=== PATIENT | male | born 1980 | race Caucasian/White ===

== ENCOUNTER 2019-11-11 20:08 | Emergency (ER) | payer OTHER ==
[~2019-11-11] VITALS: Ht 185.4 cm; Wt 98.4 kg
[~2019-11-11 20:08] MED LIST: CEPH500 PO; CETI10 PO; DIPH25 PO; FAMO20 PO; Flomax0.4 MG PO; HYDACE10B PO; ONDA4ODT MM; OXYACE10 PO; OXYACE5T PO; PRED20 PO; Percocet 5-3251 EACH PO; SULTRIDS PO
[2019-11-11 20:58] LABS: BASOPHILS ABSOLUTE AUTO 0.03 K/mm3 (0.00-0.23); BASOPHILS PERCENT AUTO 0 % (0-2); EOSINOPHILS ABSOLUTE AUTO 0.02 K/mm3 (0.00-0.68); EOSINOPHILS PERCENT AUTO 0 % (0-6); Hematocrit 54.6 % (37.0-53.0); Hemoglobin 17.4 g/dL (13.5-17.5); IMMATURE GRAN ABSOLUTE AUTO 0.02 K/mm3 (0.00-0.10); IMMATURE GRAN PERCENT AUTO 0 % (0-1); LYMPHOCYTES ABSOLUTE AUTO 0.54 K/mm3 (0.84-5.20); LYMPHOCYTES PERCENT AUTO 6 % (21-46); MONOCYTES ABSOLUTE AUTO 0.32 K/mm3 (0.16-1.47); MONOCYTES PERCENT AUTO 4 % (4-13); Mean Corpuscular HGB 28.8 pg (26.0-34.0); Mean Corpuscular HGB Conc 31.9 g/dL (31.5-36.5); Mean Corpuscular Volume 90 fL (80-100); Mean Platelet Volume 8.9 fL (9.1-12.4); NEUTROPHILS ABSOLUTE AUTO 7.58 K/mm3 (1.96-9.15); NEUTROPHILS PERCENT AUTO 89 % (41-73); Platelet Count 242 K/mm3 (150-400); RDW Coefficient Variation 12.6 % (11.7-14.2); RDW Standard Deviation 41.6 fL (35.1-46.3); Red Blood Cell Count 6.05 M/mm3 (4.30-5.90); White Blood Cell Count 8.51 K/mm3 (4.00-11.30)
[2019-11-11 21:18] LABS: Alanine Aminotransfer (ALT/SGP 26 U/L (12-78); Albumin, Blood 4.2 g/dL (3.4-5.0); Alk Phos 54 U/L (50-136); Anion Gap 8 mmol/L (6-16); Aspartate Aminotrans (AST/SGOT 27 U/L (12-37); Bilirubin, Total 1.5 mg/dL (0.1-1.0); Blood Urea Nitrogen 14 mg/dL (8-24); Bun/Creatinine Ratio 12.3 (12.0-20.0); CO2, Blood 24 mmol/L (21-32); Calcium, Blood 8.7 mg/dL (8.5-10.1); Chloride, Blood 108 mmol/L (98-108); Creatinine, Blood 1.14 mg/dL (0.60-1.20); Globulin, Blood 4.2 g/dL (2.2-4.0); Glomerular Filtration Rate >60 (60-); Glucose, Blood 215 mg/dL (70-99); Potassium, Blood 4.4 mmol/L (3.5-5.5); Sodium, Blood 140 mmol/L (136-145); Total Protein, Blood 8.4 g/dL (6.4-8.2)
[2019-11-11] MEDS ORDERED: NARCAN4 MG (22:16)
== END 2019-11-11 22:51 | disposition home or self-care (01) ==
LOC: ER 20:08
PROVIDERS: Emergency Medicine
DX: T40.1X1A Poisoning by heroin, accidental (unintentional), initial encounter (principal); F17.200 Nicotine dependence, unspecified, uncomplicated
CPT/HCPCS: 36415; 71046; 80053; 85025; 93005; 93010; 99284-25

== ENCOUNTER 2020-12-27 01:22 | Emergency (ER) | payer OTHER ==
[~2020-12-27] VITALS: Ht 185.4 cm; Wt 88.5 kg
[~2020-12-27 01:22] MED LIST changes: +NARCAN4 MG
== END 2020-12-27 03:21 | disposition left against medical advice (07) ==
LOC: ER 01:22
DX: Z53.21 Procedure and treatment not carried out due to patient leaving prior to being seen by health care provider (principal)

== ENCOUNTER 2020-12-29 15:08 | Emergency (ER) | payer OTHER ==
[~2020-12-29] VITALS: Ht 185.4 cm; Wt 90.7 kg
[2020-12-29] MEDS ORDERED: BACTRIM DS TAB1 EAC1 PO (16:47)
[2020-12-29] MEDS ORDERED: CEPH500 PO (16:47)
== END 2020-12-29 16:58 | disposition home or self-care (01) ==
LOC: ER 15:08
DX: L02.416 Cutaneous abscess of left lower limb (principal); L03.116 Cellulitis of left lower limb; F17.200 Nicotine dependence, unspecified, uncomplicated
CPT/HCPCS: 10060; 96372-59; 99283-25; A9270; J1885

== ENCOUNTER 2021-09-03 17:01 | Emergency (ER) | payer OTHER ==
[~2021-09-03] VITALS: Ht 188 cm; Wt 90.7 kg
[~2021-09-03 17:01] MED LIST changes: +BACTRIM DS TAB1 EAC1 PO
== END 2021-09-03 17:34 | disposition home or self-care (01) ==
LOC: ER 17:01
DX: T40.1X1A Poisoning by heroin, accidental (unintentional), initial encounter (principal); F17.210 Nicotine dependence, cigarettes, uncomplicated
CPT/HCPCS: 99284

== ENCOUNTER 2021-10-29 19:47 | Emergency (ER) | payer OTHER | END 2021-10-29 19:59 | disposition left against medical advice (07) | LOC: ER 19:47 | DX: Z53.21 Procedure and treatment not carried out due to patient leaving prior to being seen by health care provider (principal) ==

== ENCOUNTER 2021-11-29 18:17 | Emergency (ER) | payer OTHER ==
[~2021-11-29] VITALS: Ht 182.9 cm; Wt 90.7 kg
[2021-11-29] MEDS ORDERED: NARCAN4 M1 (19:15)
== END 2021-11-29 19:33 | disposition home or self-care (01) ==
LOC: ER 18:17
DX: T40.1X1A Poisoning by heroin, accidental (unintentional), initial encounter (principal); F17.210 Nicotine dependence, cigarettes, uncomplicated
CPT/HCPCS: 99284

== ENCOUNTER 2022-01-20 21:03 | Emergency (ER) | payer OTHER ==
[~2022-01-20] VITALS: Ht 182.9 cm; Wt 86.2 kg
[~2022-01-20 21:03] MED LIST changes: +NARCAN4 M1
== END 2022-01-22 21:14 | disposition left against medical advice (07) ==
LOC: ER 21:03
DX: Z53.21 Procedure and treatment not carried out due to patient leaving prior to being seen by health care provider (principal)
CPT/HCPCS: 93005; 93010

== ENCOUNTER → 2022-06-27 | Outpatient (CLI) | payer OTHER | END | disposition home or self-care (01) | LOC: LAB SHORT 12:50 → LAB 12:50 | DX: R31.9 Hematuria, unspecified (principal) | CPT/HCPCS: 87077; 87086; 87186 ==

== ENCOUNTER 2023-02-17 11:14 | Inpatient (IN) | payer OTHER ==
[~2023-02-17] VITALS: Ht 188 cm; Wt 92.9 kg
[2023-02-17 12:07] LABS: BASOPHILS ABSOLUTE AUTO 0.05 K/mm3 (0.00-0.23); BASOPHILS PERCENT AUTO 0 % (0-2); EOSINOPHILS ABSOLUTE AUTO 0.24 K/mm3 (0.00-0.68); EOSINOPHILS PERCENT AUTO 2 % (0-6); Hematocrit 39.8 % (37.0-53.0); Hemoglobin 13.1 g/dL (13.5-17.5); IMMATURE GRAN ABSOLUTE AUTO 0.03 K/mm3 (0.00-0.10); IMMATURE GRAN PERCENT AUTO 0 % (0-1); LYMPHOCYTES ABSOLUTE AUTO 0.74 K/mm3 (0.84-5.20); LYMPHOCYTES PERCENT AUTO 6 % (21-46); MONOCYTES ABSOLUTE AUTO 0.75 K/mm3 (0.16-1.47); MONOCYTES PERCENT AUTO 6 % (4-13); Mean Corpuscular HGB 28.8 pg (26.0-34.0); Mean Corpuscular HGB Conc 32.9 g/dL (31.5-36.5); Mean Corpuscular Volume 88 fL (80-100); Mean Platelet Volume 8.9 fL (9.1-12.4); NEUTROPHILS ABSOLUTE AUTO 10.17 K/mm3 (1.96-9.15); NEUTROPHILS PERCENT AUTO 85 % (41-73); Platelet Count 299 K/mm3 (150-400); RDW Coefficient Variation 13.1 % (11.7-14.2); RDW Standard Deviation 42.2 fL (35.1-46.3); Red Blood Cell Count 4.55 M/mm3 (4.30-5.90); White Blood Cell Count 11.98 K/mm3 (4.00-11.30)
[2023-02-17 12:18] LABS: Albumin, Blood 3.1 g/dL (3.4-5.0); Albumin/Globulin Ratio 0.7 (0.8-1.8); Bilirubin, Total 0.5 mg/dL (0.1-1.0); Bun/Creatinine Ratio 24.5 (12.0-20.0); Calcium, Blood 8.9 mg/dL (8.5-10.1); Creatinine, Blood 0.78 mg/dL (0.60-1.20); Globulin, Blood 4.5 g/dL (2.2-4.0); Potassium, Blood 4.4 mmol/L (3.5-5.5); Total Protein, Blood 7.6 g/dL (6.4-8.2)
[2023-02-17 15:48] VITALS: BP 153/79
[2023-02-17 20:39] VITALS: BP 119/68
[2023-02-17 20:47] LABS: Source, Urine Clean Catch
[2023-02-17 20:57] LABS: Appearance, Urine Clear (Clear); Bilirubin, Urine Neg (Neg); Blood, Urine Neg (Neg); Color, Urine Yellow (P-Yellow); Glucose Qualitative, Urine Neg (Neg); Ketones, Urine Neg (Neg); Leukocyte Esterase, Urine Neg (Neg); Nitrite, Urine Neg (Neg); Protein, Urine 1+ (Neg); Urobilinogen, Urine NORM (Normal)
[2023-02-17 21:10] LABS: U Amphetamine Screen DETECTED; U Barbituate Screen Not Detected; U Benzodiazapine Screen Not Detected; U Buprenorphine Screen Not Detected; U Cannabinoids Screen DETECTED; U Cocaine Screen Not Detected; U Methadone Screen Not Detected; U Methamphetamine Screen DETECTED; U Opiates Screen Not Detected; U Oxycodone Screen DETECTED; U Phencyclidine Screen Not Detected; U Propoxyphene Screen Not Detected
[2023-02-18] VITALS (13 sets, daily range): BP systolic 100–143; BP diastolic 47–82
--- NOTE | 2023-02-18 02:56 | NUR ---
SHIFT SUMMARY NOC PT A/O X 4. PLEASANT AND COOPERATIVE WITH CARE. AFFECT IS FLAT. PT HAD CT SCAN PERFORMED STILL AWAITING RESULTS. PT HAS IRRIGATION/DEBRIDEMENT SCHEDULED WITH DR DHALIWAL TODAY FOR R HAND CELLULITIS. PT HAD C/O OF PAIN ONCE DURING SHIFT AND WAS MEDICATED PER EMAR. PT REFUSED SCD'S FOR DVT PREVENTION. PT ALSO ON NPO STATUS AWAITING I/D PROCEDURE. PT HAS PG IN RADHA. PT IS CURRENTLY RESTING WITH BED IN LOWEST POSITION, AND CALL LIGHT WITHIN REACH.
[2023-02-18 04:47] LABS: Hematocrit 38.7 % (37.0-53.0); Hemoglobin 12.7 g/dL (13.5-17.5); Mean Corpuscular HGB 28.9 pg (26.0-34.0); Mean Corpuscular HGB Conc 32.8 g/dL (31.5-36.5); Mean Corpuscular Volume 88 fL (80-100); Mean Platelet Volume 8.8 fL (9.1-12.4); Platelet Count 254 K/mm3 (150-400); RDW Coefficient Variation 12.9 % (11.7-14.2); RDW Standard Deviation 41.8 fL (35.1-46.3)
[2023-02-18 05:08] LABS: Bun/Creatinine Ratio 16.6 (12.0-20.0); Calcium, Blood 8.8 mg/dL (8.5-10.1); Creatinine, Blood 0.84 mg/dL (0.60-1.20); Potassium, Blood 3.9 mmol/L (3.5-5.5)
--- NOTE | 2023-02-18 17:04 | NUR ---
PT AAOX4. CALLS APPROPRIATELY. PAIN WELL CONTROLLED WITH PAIN MEDS. NO ACUTE EVENTS THIS SHIFT. PT IS CALM AND COOPERATIVE.
[2023-02-19 01:44] VITALS: BP 117/70
--- NOTE | 2023-02-19 04:53 | NUR ---
SHIFT SUMMARY NOC PT A/O X 4. PLEASANT AND COOPERATIVE WITH CARE. PT HAD NO C/O OF PAIN IN R HAND AFTER I/D PROCEDURE YESTERDAY, NO PAIN RX REQUIRED. PT DRESSING ON R HAND IS C/D/I. PT PG DOES NOT WORK AND A PERIPHERAL IV ACCESS WAS STARTED IN L HAND. PT IS CURRENTLY RESTING WITH BED IN LOWEST POSITION, AND CALL LIGHT WITHIN REACH.
[2023-02-19 05:49] VITALS: BP 113/61
[2023-02-19 07:55] VITALS: BP 111/56
[2023-02-19 15:52] VITALS: BP 112/52
--- NOTE | 2023-02-19 17:47 | NUR ---
SHIFT SUMMARY- PT'S PAIN WELL CONTROLLED THIS SHIFT WITH PAIN MEDS. MADHURI CHANGED PT'S DRESSING TODAY W/RN IN ROOM. NO ACUTE EVENTS THIS SHIFT. PT CALM AND COOPERATIVE.
[2023-02-19 17:49] LABS: Vancomycin, Trough 20.7 ug/mL (5.0-10.0)
[2023-02-19 20:04] VITALS: BP 109/44
--- NOTE | 2023-02-20 04:25 | NUR ---
SHIFT SUMMARY NOC PT A/O X 4. PLEASANT AND COOPERATIVE WITH CARE. PT SLEPT FOR MAJORITY OF SHIFT. ABX WERE GIVEN PER EMAR. PT HAD ONE C/O OF PAIN IN R HAND AND WAS GIVEN PN RX PER EMAR. NO ACUTE CHANGES TO REPORT. PT IS CURRENTLY RESTING WITH BED IN LOWEST POSITION, AND CALL LIGHT WITHIN REACH.
[2023-02-20 05:25] VITALS: BP 128/84
[2023-02-20 07:27] VITALS: BP 118/80
[2023-02-20] MEDS ORDERED: VISBIOME 112.51 EACH PO (11:34)
[2023-02-20] MEDS ORDERED: AMOCLA875 PO (11:35)
[2023-02-20] MEDS ORDERED: IBUP600 PO (11:35)
[2023-02-20] MEDS ORDERED: SENN187 PO (11:35)
[2023-02-20] MEDS ORDERED: OXYC5 PO (11:36)
--- NOTE | 2023-02-20 13:07 | NUR ---
DC SUMMARY- PT SIGNED ALL DC SUMMARY. INFORMATION GIVEN REGARDING HIS WOUND CLINIC REFERRAL. PT LEFT WITH ALL BELONINGS. PT PICKED UP MY MOM. HARD SCRIPT GIVEN TO PT AND COPY PLACED IN CHART.
--- NOTE | 2023-02-20 13:11 | NUR ---
WOUND CARE NOTE- SYSTEM VALIDATION ENGINEER DRESSED WOUND FOR TODAY BEFORE DC.
== END 2023-02-20 12:00 | disposition home or self-care (01) | DRG 603 ==
LOC: ER 11:14 → MEDS 13:33
PROVIDERS: Orthopaedic Surgery; Physician Assistant; ADMIT Internal Medicine
PROC: 0J9J0ZZ Drainage of Right Hand Subcutaneous Tissue and Fascia, Open Approach (ICD-10-PCS; principal; 2023-02-18 11:45)
DX: L03.011 Cellulitis of right finger (principal); B95.61 Methicillin susceptible Staphylococcus aureus infection as the cause of diseases classified elsewhere; F15.10 Other stimulant abuse, uncomplicated; F12.10 Cannabis abuse, uncomplicated; F17.210 Nicotine dependence, cigarettes, uncomplicated; F11.10 Opioid abuse, uncomplicated; Z79.899 Other long term (current) drug therapy; Z59.00 Homelessness unspecified; I25.2 Old myocardial infarction
CPT/HCPCS: 36415; 73120; 73201; 80048; 80053; 80202; 85025; 85027; 85651; 86140; 87070; 87075; 87077; 87147; 87186; 87205; 93005; 93010; 96365-59; 96375-59; 99285-25; A9270; C1751; J0295; J1100; J1885; J2250; J2405; J2704; J3010; J3370; J7050; J7120; Q9967

== ENCOUNTER 2025-07-29 23:14 | Observation (INO) | payer OTHER ==
[~2025-07-29] VITALS: Ht 177.8 cm; Wt 81.7 kg
[~2025-07-29 23:14] MED LIST changes: +AMOCLA875 PO; +IBUP600 PO; +OXYC5 PO; +SENN187 PO; +VISBIOME 112.51 EACH PO
[2025-07-30 02:11] LABS: Ethanol (Alcohol), Blood, Med <3 mg/dL; Salicylate <1.7 mg/dL (2.8-20.0)
[2025-07-30 02:39] LABS: Acetaminophen, Random <2.0 ug/mL (10.0-30.0); Alanine Aminotransfer (ALT/SGP 19 U/L (12-78); Albumin, Blood 3.5 g/dL (3.4-5.0); Albumin/Globulin Ratio 1.1 (0.8-1.8); Anion Gap 8 mmol/L (3-11); Aspartate Aminotrans (AST/SGOT 19 U/L (12-37); Bilirubin, Total 0.8 mg/dL (0.1-1.0); Blood Urea Nitrogen 15 mg/dL (8-24); CO2, Blood 26 mmol/L (21-32); Calcium, Blood 8.2 mg/dL (8.5-10.1); Chloride, Blood 110 mmol/L (98-108); Creatinine, Blood 1.02 mg/dL (0.60-1.20); Globulin, Blood 3.3 g/dL (2.2-4.0); Glucose, Blood 91 mg/dL (70-99); Potassium, Blood 3.8 mmol/L (3.5-5.5); Sodium, Blood 140 mmol/L (136-145); Total Protein, Blood 6.8 g/dL (6.4-8.2)
[2025-07-30] MEDS ORDERED: LORazepam 2 MG/ML 1ML Injection IM ONE (03:10)
[2025-07-30] MEDS ORDERED: Haloperidol Lactate Inj. 5 MG/ML Injection IM ONE (03:10)
[2025-07-30] MEDS ORDERED: DiphenhydrAMINE HCl 50 MG/ML 1ML Vial IM ONE (03:20)
[2025-07-30 03:36] LABS: BASOPHILS ABSOLUTE AUTO 0.05 K/mm3 (0.00-0.23); BASOPHILS PERCENT AUTO 1 % (0-2); EOSINOPHILS ABSOLUTE AUTO 0.25 K/mm3 (0.00-0.68); EOSINOPHILS PERCENT AUTO 5 % (0-6); Hematocrit 40.0 % (37.0-53.0); Hemoglobin 12.8 g/dL (13.5-17.5); IMMATURE GRAN ABSOLUTE AUTO 0.01 K/mm3 (0.00-0.10); IMMATURE GRAN PERCENT AUTO 0 % (0-1); LYMPHOCYTES ABSOLUTE AUTO 1.43 K/mm3 (0.84-5.20); LYMPHOCYTES PERCENT AUTO 27 % (21-46); MONOCYTES ABSOLUTE AUTO 0.49 K/mm3 (0.16-1.47); MONOCYTES PERCENT AUTO 9 % (4-13); Mean Corpuscular HGB Conc 32.0 g/dL (31.5-36.5); Mean Corpuscular Volume 89 fL (80-100); NEUTROPHILS ABSOLUTE AUTO 2.98 K/mm3 (1.96-9.15); NEUTROPHILS PERCENT AUTO 57 % (41-73); NRBC ABSOLUTE 0.00 K/mm3 (0.00-0.02); NRBC Auto 0.0 /100 WBC (0.0-0.2); Platelet Count 241 K/mm3 (150-400); RDW Coefficient Variation 12.5 % (11.7-14.2); RDW Standard Deviation 41.1 fL (35.1-46.3)
[2025-07-30 09:49] LABS: Source, Urine Clean Catch
[2025-07-30 10:04] LABS: Bilirubin, Urine Neg (Neg); Color, Urine Amber (P-Yellow); Glucose Qualitative, Urine Neg (Neg); Ketones, Urine Neg (Neg); Leukocyte Esterase, Urine Neg (Neg); Protein, Urine 2+ (Neg); Specific Gravity, Urine 1.025 (1.003-1.022); Urobilinogen, Urine NORM (Normal)
[2025-07-30 10:20] LABS: U Amphetamine Screen DETECTED; U Barbituate Screen Not Detected; U Benzodiazapine Screen DETECTED; U Buprenorphine Screen Not Detected; U Cannabinoids Screen DETECTED; U Cocaine Screen Not Detected; U Methadone Screen Not Detected; U Methamphetamine Screen DETECTED; U Opiates Screen Not Detected; U Oxycodone Screen Not Detected; U Phencyclidine Screen Not Detected
[2025-07-30 10:22] LABS: Red Blood Cells, Urine Not Seen /hpf (0-2); White Blood Cells, Urine 0-2 /hpf (0-5)
[2025-07-31 10:15] VITALS: BP 120/66
== END 2025-07-31 10:16 | disposition home or self-care (01) ==
LOC: ER 23:14 → EOR 23:21
PROVIDERS: ADMIT Emergency Medicine
DX: F39 Unspecified mood [affective] disorder (principal); F19.20 Other psychoactive substance dependence, uncomplicated; F17.210 Nicotine dependence, cigarettes, uncomplicated; Z79.899 Other long term (current) drug therapy
CPT/HCPCS: 80053; 80320; 81001; 85025; 93005; 93010; 99285-25; A9270; G0378; G0480; J1200; J1630; J2060

== ENCOUNTER 2025-08-22 19:17 | Emergency (ER) | payer OTHER ==
[~2025-08-22] VITALS: Ht 185.4 cm; Wt 83.9 kg
[2025-08-22 21:05] LABS: Alanine Aminotransfer (ALT/SGP 21.0 U/L (12-78); Albumin, Blood 2.8 g/dL (3.4-5.0); Albumin/Globulin Ratio 0.6 (0.8-1.8); Anion Gap 8.0 mmol/L (3-11); Aspartate Aminotrans (AST/SGOT 26.0 U/L (12-37); Bilirubin, Total 0.3 mg/dL (0.1-1.0); Blood Urea Nitrogen 13.0 mg/dL (8-24); CO2, Blood 29.0 mmol/L (21-32); Calcium, Blood 8.7 mg/dL (8.5-10.1); Chloride, Blood 104.0 mmol/L (98-108); Creatinine, Blood 0.96 mg/dL (0.60-1.20); Globulin, Blood 4.5 g/dL (2.2-4.0); Glucose, Blood 104.0 mg/dL (70-99); Potassium, Blood 4.0 mmol/L (3.5-5.5); Sodium, Blood 137.0 mmol/L (136-145); Total Protein, Blood 7.3 g/dL (6.4-8.2)
[2025-08-22] MEDS ORDERED: Ketorolac Tromethamine 30mg Vial IV ONE (22:55)
[2025-08-22 23:20] LABS: Source, Urine Clean Catch
[2025-08-22 23:23] LABS: Bilirubin, Urine Neg (Neg); Color, Urine Yellow (P-Yellow); Glucose Qualitative, Urine Neg (Neg); Ketones, Urine Neg (Neg); Leukocyte Esterase, Urine 3+ (Neg); Protein, Urine 3+ (Neg); Specific Gravity, Urine 1.025 (1.003-1.022); Urobilinogen, Urine NORM (Normal)
[2025-08-22 23:24] LABS: White Blood Cells, Urine TNTC /hpf (0-5)
[2025-08-22] MEDS ORDERED: CefTRIAXone Sodium 1,000 MG in NS 100 ML IV ONE (23:35)
[2025-08-22] MEDS ORDERED: DOXY100 PO (23:40)
[2025-08-22] MEDS ORDERED: CefTRIAXone 1000 MG Vial IM ONE (23:50)
[2025-08-23] VITALS: BP 126/106
== END 2025-08-23 02:01 | disposition home or self-care (01) ==
LOC: ER 19:17
PROVIDERS: Student in an Organized Health Care Education/Training Program
DX: N41.0 Acute prostatitis (principal); F17.210 Nicotine dependence, cigarettes, uncomplicated; Z79.899 Other long term (current) drug therapy
CPT/HCPCS: 74176; 80053; 81001; 83690; 87077; 87086; 87147; 87186; 96372; 96374; 99284-25; J0696; J1885

== ENCOUNTER 2025-08-25 03:22 | Inpatient (IN) | payer OTHER ==
[~2025-08-25] VITALS: Ht 185.4 cm; Wt 88.3 kg
[~2025-08-25 03:22] MED LIST changes: +DOXY100 PO
[2025-08-25 04:18] LABS: Source, Urine Foley catheter
[2025-08-25 04:32] LABS: Bilirubin, Urine Neg (Neg); Glucose Qualitative, Urine Neg (Neg); Ketones, Urine Neg (Neg); Leukocyte Esterase, Urine 2+ (Neg); Protein, Urine 1+ (Neg); Specific Gravity, Urine 1.015 (1.003-1.022); Urobilinogen, Urine NORM (Normal)
[2025-08-25 04:42] LABS: Color, Urine Yellow (P-Yellow); White Blood Cells, Urine 50-100 /hpf (0-5)
[2025-08-25] MEDS ORDERED: NS 1,000 ML IV SCH ×2 (05:00→06:15)
[2025-08-25 05:20] LABS: BASOPHILS ABSOLUTE AUTO 0.05 K/mm3 (0.00-0.23); BASOPHILS PERCENT AUTO 0 % (0-2); EOSINOPHILS ABSOLUTE AUTO 0.16 K/mm3 (0.00-0.68); EOSINOPHILS PERCENT AUTO 1 % (0-6); Hematocrit 37.3 % (37.0-53.0); Hemoglobin 12.5 g/dL (13.5-17.5); IMMATURE GRAN ABSOLUTE AUTO 0.06 K/mm3 (0.00-0.10); IMMATURE GRAN PERCENT AUTO 0 % (0-1); LYMPHOCYTES ABSOLUTE AUTO 0.73 K/mm3 (0.84-5.20); LYMPHOCYTES PERCENT AUTO 5 % (21-46); MONOCYTES ABSOLUTE AUTO 0.66 K/mm3 (0.16-1.47); MONOCYTES PERCENT AUTO 4 % (4-13); Mean Corpuscular HGB Conc 33.5 g/dL (31.5-36.5); Mean Corpuscular Volume 88 fL (80-100); NEUTROPHILS ABSOLUTE AUTO 14.06 K/mm3 (1.96-9.15); NEUTROPHILS PERCENT AUTO 90 % (41-73); NRBC ABSOLUTE 0.00 K/mm3 (0.00-0.02); NRBC Auto 0.0 /100 WBC (0.0-0.2); Platelet Count 377 K/mm3 (150-400); RDW Coefficient Variation 12.5 % (11.7-14.2); RDW Standard Deviation 40.0 fL (35.1-46.3)
[2025-08-25 05:40] LABS: Alanine Aminotransfer (ALT/SGP 24.0 U/L (12-78); Albumin, Blood 3.0 g/dL (3.4-5.0); Albumin/Globulin Ratio 0.7 (0.8-1.8); Anion Gap 9.0 mmol/L (3-11); Aspartate Aminotrans (AST/SGOT 24.0 U/L (12-37); Bilirubin, Total 0.5 mg/dL (0.1-1.0); Blood Urea Nitrogen 16.0 mg/dL (8-24); CO2, Blood 27.0 mmol/L (21-32); Calcium, Blood 9.3 mg/dL (8.5-10.1); Chloride, Blood 105.0 mmol/L (98-108); Creatinine, Blood 0.82 mg/dL (0.60-1.20); Globulin, Blood 4.5 g/dL (2.2-4.0); Glucose, Blood 114.0 mg/dL (70-99); Potassium, Blood 3.8 mmol/L (3.5-5.5); Sodium, Blood 137.0 mmol/L (136-145); Total Protein, Blood 7.5 g/dL (6.4-8.2)
[2025-08-25] MEDS ORDERED: Ondansetron HCl 2 MG / ML 2ML Vial IV PRN (06:10)
[2025-08-25] MEDS ORDERED: FLU VACC TS2025-26(6MOS UP)/PF 45 MCG/0.5 ML SYRINGE IM SCH (06:10)
[2025-08-25] MEDS ORDERED: FentaNYL Citrate 50 MCG/ML 2 ML Injection IV PRN (06:15)
[2025-08-25] MEDS ORDERED: Vancomycin (Pharmacy Consult) IV SCH (06:15)
[2025-08-25] MEDS ORDERED: LevoFLOXacin 750 MG/D5W 150ML 150 ML IV SCH (06:30)
[2025-08-25] MEDS ORDERED: Enoxaparin 40 MG/0.4 ML SYR SC SCH (09:00)
[2025-08-25 09:29] VITALS: BP 137/85
[2025-08-25 11:48] VITALS: BP 137/97
[2025-08-25 15:18] VITALS: BP 133/87
--- NOTE | 2025-08-25 17:35 | NUR ---
SHIFT SUMMARY PT AOX4, INDEPENDENT IN THE ROOM. GARZA PLACED AND PATENT. PER THE PT, HE IS DETOXING OFF OF FENTANYL. PROVIDER MADE AWARE AND HE WAS MEDICATED PER THE EMAR. TELE IN PLACE WITH NO EVENTS THIS SHIFT. PT CALLS AND MAKES HIS NEEDS KNOWN. NO ACUTE ISSUES. CALL LIGHT WITHIN REACH, BED LOCKED AND IN THE LOWEST POSITION. WILL REPORT TO ONCOMING NURSE.
[2025-08-25 20:17] VITALS: BP 122/88
[2025-08-26 00:59] VITALS: BP 113/67
--- NOTE | 2025-08-26 05:22 | NUR ---
SHIFT SUMMARY; PATIENT SLEPT IN LONG INTERVALS. REMAINS IN BED WITH TALA GARZA FINISHED. TELE SR 76. NS COMPLETED. VSS.
[2025-08-26 05:48] VITALS: BP 142/100
[2025-08-26] MEDS ORDERED: NS 250 ML IV PRN (07:30)
[2025-08-26 07:33] VITALS: BP 130/86
[2025-08-26 07:37] LABS: BASOPHILS ABSOLUTE AUTO 0.05 K/mm3 (0.00-0.23); BASOPHILS PERCENT AUTO 0 % (0-2); EOSINOPHILS ABSOLUTE AUTO 0.32 K/mm3 (0.00-0.68); EOSINOPHILS PERCENT AUTO 3 % (0-6); Hematocrit 41.7 % (37.0-53.0); Hemoglobin 13.4 g/dL (13.5-17.5); IMMATURE GRAN ABSOLUTE AUTO 0.05 K/mm3 (0.00-0.10); IMMATURE GRAN PERCENT AUTO 0 % (0-1); LYMPHOCYTES ABSOLUTE AUTO 1.35 K/mm3 (0.84-5.20); LYMPHOCYTES PERCENT AUTO 10 % (21-46); MONOCYTES ABSOLUTE AUTO 0.70 K/mm3 (0.16-1.47); MONOCYTES PERCENT AUTO 5 % (4-13); Mean Corpuscular HGB Conc 32.1 g/dL (31.5-36.5); Mean Corpuscular Volume 88 fL (80-100); NEUTROPHILS ABSOLUTE AUTO 10.48 K/mm3 (1.96-9.15); NEUTROPHILS PERCENT AUTO 81 % (41-73); NRBC ABSOLUTE 0.00 K/mm3 (0.00-0.02); NRBC Auto 0.0 /100 WBC (0.0-0.2); Platelet Count 367 K/mm3 (150-400); RDW Coefficient Variation 12.5 % (11.7-14.2); RDW Standard Deviation 41.1 fL (35.1-46.3)
[2025-08-26 08:04] LABS: Alanine Aminotransfer (ALT/SGP 24 U/L (12-78); Albumin, Blood 2.8 g/dL (3.4-5.0); Albumin/Globulin Ratio 0.5 (0.8-1.8); Anion Gap 8 mmol/L (3-11); Aspartate Aminotrans (AST/SGOT 18 U/L (12-37); Bilirubin, Total 0.4 mg/dL (0.1-1.0); Blood Urea Nitrogen 11 mg/dL (8-24); CO2, Blood 27 mmol/L (21-32); Calcium, Blood 9.2 mg/dL (8.5-10.1); Chloride, Blood 103 mmol/L (98-108); Creatinine, Blood 0.77 mg/dL (0.60-1.20); Globulin, Blood 5.4 g/dL (2.2-4.0); Glucose, Blood 103 mg/dL (70-99); Potassium, Blood 3.8 mmol/L (3.5-5.5); Sodium, Blood 134 mmol/L (136-145); Total Protein, Blood 8.2 g/dL (6.4-8.2); Vancomycin, Trough 17.8 ug/mL (5.0-10.0)
[2025-08-26 11:31] VITALS: BP 113/79
[2025-08-26 17:06] VITALS: BP 131/79
--- NOTE | 2025-08-26 17:37 | NUR ---
SHIFT SUMMARY PT AOX4, INDEPENDENT IN THE ROOM. ATTEMPTED TO REMOVE HIS CATHETER THIS SHIFT BUT AFTER FOUR HOURS POST REMOVAL, THE PT HAD NOT YET VOIDED. A BLADDER SCAN WAS DONE AND NEARLY 600ML WERE IN HIS BLADDER. THE PROVIDER WAS CONTACTED AND THE GARZA WAS PLACED AGAIN. THE PT TOLERATED IT WELL. HE PUT OUT NEARLY 800ML OF URINE. HE CALLS AND MAKES HIS NEEDS KNOWN. POSSIBLE DC TOMORROW. CALL LIGHT WITHIN REACH, BED LOCKED AND IN THE LOWEST POSITION. WILL REPORT TO ONCOMING NURSE.
[2025-08-26 19:11] VITALS: BP 108/74
[2025-08-27 00:02] VITALS: BP 112/80
[2025-08-27 03:58] VITALS: BP 123/85
--- NOTE | 2025-08-27 04:53 | NUR ---
SHIFT SUMMARY NOC PT A/O X 4. PLEASANT AND COOPERATIVE WITH CARE. VSS. NO ACUTE CHANGES TO REPORT. IV ABX PER EMAR. GARZA IN PLACE DRAING CLEAR YELLOW URINE TO GRAVITY. PT RECEIVED FIRST DOSE OF AMBIEN WITH BEDTIME MEDICATION. PT ON TELE SINUS RHYTHM IN 70'S. PT CURRENTLY RESTING WITH BED IN LOWEST POSITION, AND CALL LIGHT WITHIN REACH.
[2025-08-27 07:38] VITALS: BP 112/81
[2025-08-27 10:17] LABS: Vancomycin, Trough 11.2 ug/mL (5.0-10.0)
[2025-08-27 11:28] VITALS: BP 113/79
[2025-08-27] MEDS ORDERED: METH10 PO (14:58)
[2025-08-27] MEDS ORDERED: TAMS.4ER PO (14:59)
[2025-08-27] MEDS ORDERED: SULTRIDS PO (14:59)
[2025-08-27] MEDS ORDERED: NICO21TP TOP (14:59)
--- NOTE | 2025-08-27 15:57 | NUR ---
Patient discharged home today. All belongings in patient possession prior to him leaving room. IV removed with tip intact and no signs of tenderness or swelling to site. Telemetry notified of patient discharge and box returned to PCU. Medications faxed to [facility] per patient preference. All education/instruction discussed with patient prior to discharge.
== END 2025-08-27 15:24 | disposition home or self-care (01) | DRG 872 ==
LOC: ER 03:22 → MEDS 03:23 → ERHOLD 03:23 → MEDS 09:15
PROVIDERS: Emergency Medicine; ADMIT Internal Medicine
PROC: 0T9B70Z Drainage of Bladder with Drainage Device, Via Natural or Artificial Opening (ICD-10-PCS; principal; 2025-08-25)
PROC: 3E03329 Introduction of Other Anti-infective into Peripheral Vein, Percutaneous Approach (ICD-10-PCS; 2025-08-25)
DX: A41.02 Sepsis due to Methicillin resistant Staphylococcus aureus (principal); N39.0 Urinary tract infection, site not specified; N41.9 Inflammatory disease of prostate, unspecified; R33.9 Retention of urine, unspecified; I25.2 Old myocardial infarction; Z79.899 Other long term (current) drug therapy; F17.210 Nicotine dependence, cigarettes, uncomplicated
CPT/HCPCS: 36415; 51798; 80053; 80202; 81001; 82565; 83605; 83880; 85025; 87040; 87086; 96365; 96366; 96368; 99285-25; A9270; G0378; J1650; J1956; J3373; J7030; J7040; J7050

== ENCOUNTER 2025-10-19 12:14 | Emergency (ER) | payer OTHER ==
[~2025-10-19] VITALS: Ht 188 cm; Wt 81.7 kg
[~2025-10-19 12:14] MED LIST changes: +METH10 PO; +NICO21TP TOP; +TAMS.4ER PO
[2025-10-19] MEDS ORDERED: NS 1,000 ML IV SCH ×2 (14:45→15:00)
[2025-10-19] MEDS ORDERED: HYDROmorphone HCl/Pf 1MG SYR IV ONE (14:45)
[2025-10-19] MEDS ORDERED: Dexamethasone Sod Phos 10 MG/ML 1ML VIAL IV ONE (14:45)
[2025-10-19] MEDS ORDERED: Ampicillin Sod/Sulbactam Sod 3 GM in NS 100 ML IV ONE (14:45)
[2025-10-19] MEDS ORDERED: Vancomycin (Pharmacy Consult) IV PRN (15:05)
[2025-10-19 15:53] LABS: BASOPHILS ABSOLUTE AUTO 0.07 K/mm3 (0.00-0.23); BASOPHILS PERCENT AUTO 1 % (0-2); EOSINOPHILS ABSOLUTE AUTO 0.20 K/mm3 (0.00-0.68); EOSINOPHILS PERCENT AUTO 2 % (0-6); Hematocrit 39.5 % (37.0-53.0); Hemoglobin 12.6 g/dL (13.5-17.5); IMMATURE GRAN ABSOLUTE AUTO 0.05 K/mm3 (0.00-0.10); IMMATURE GRAN PERCENT AUTO 1 % (0-1); LYMPHOCYTES ABSOLUTE AUTO 1.42 K/mm3 (0.84-5.20); LYMPHOCYTES PERCENT AUTO 14 % (21-46); MONOCYTES ABSOLUTE AUTO 0.91 K/mm3 (0.16-1.47); MONOCYTES PERCENT AUTO 9 % (4-13); Mean Corpuscular HGB Conc 31.9 g/dL (31.5-36.5); Mean Corpuscular Volume 89 fL (80-100); NEUTROPHILS ABSOLUTE AUTO 7.36 K/mm3 (1.96-9.15); NEUTROPHILS PERCENT AUTO 74 % (41-73); NRBC ABSOLUTE 0.00 K/mm3 (0.00-0.02); NRBC Auto 0.0 /100 WBC (0.0-0.2); Platelet Count 363 K/mm3 (150-400); RDW Coefficient Variation 13.0 % (11.7-14.2); RDW Standard Deviation 42.4 fL (35.1-46.3)
[2025-10-19 16:17] LABS: Alanine Aminotransfer (ALT/SGP 34.0 U/L (12-78); Albumin, Blood 3.1 g/dL (3.4-5.0); Albumin/Globulin Ratio 0.7 (0.8-1.8); Anion Gap 5.0 mmol/L (3-11); Aspartate Aminotrans (AST/SGOT 25.0 U/L (12-37); Bilirubin, Total 0.5 mg/dL (0.1-1.0); Blood Urea Nitrogen 16.0 mg/dL (8-24); CO2, Blood 33.0 mmol/L (21-32); Calcium, Blood 8.7 mg/dL (8.5-10.1); Chloride, Blood 100.0 mmol/L (98-108); Creatinine, Blood 0.91 mg/dL (0.60-1.20); Globulin, Blood 4.4 g/dL (2.2-4.0); Glucose, Blood 113.0 mg/dL (70-99); Potassium, Blood 3.9 mmol/L (3.5-5.5); Sodium, Blood 134.0 mmol/L (136-145); Total Protein, Blood 7.5 g/dL (6.4-8.2)
[2025-10-19] MEDS ORDERED: Rocuronium Bromide 10 MG/ML 5ML Injection IV ONE ×2 (18:00→20:54)
[2025-10-19] MEDS ORDERED: Etomidate 2MG / ML 10ML Vial IV ONE ×2 (18:00→20:54)
[2025-10-19] MEDS ORDERED: Glycopyrrolate 0.2 MG/ML 1MLVIAL IV ONE (18:00)
[2025-10-19] MEDS ORDERED: Ketamine HCl 100 MG / ML 5ML Vial IV ONE (18:00)
[2025-10-19] MEDS ORDERED: FentaNYL Citrate 50 MCG/ML 2 ML Injection IV SCH (18:00)
[2025-10-19] MEDS ORDERED: Benzocaine Oral Spray 0.5ML UD MT ONE (18:05)
[2025-10-19] MEDS ORDERED: Ondansetron HCl 2 MG / ML 2ML Vial ONE ×3 (18:11→19:03)
[2025-10-19 18:12] LABS: pH Blood Venous 7.53 (7.34-7.37)
[2025-10-19] MEDS ORDERED: LORazepam 2 MG/ML 1ML Injection ONE (18:42)
[2025-10-19] MEDS ORDERED: Oxymetazoline 0.05% Nasal Relief Spray 15mL BTL ONE (19:05)
[2025-10-19] MEDS ORDERED: Lidocaine 2% Jelly Uro-Jet UR ONE (19:05)
[2025-10-19 19:53] VITALS: BP 129/85
[2025-10-19] MEDS ORDERED: LORazepam 2 MG/ML 1ML Injection IV ONE (20:54)
[2025-10-19] MEDS ORDERED: Ketamine HCl 100 MG / ML 5ML Vial IM ONE (20:54)
[2025-10-19] MEDS ORDERED: Propofol 10mg/ml 20 ml Vial (Procedural) IV ONE (20:54)
== END 2025-10-19 19:53 | disposition short-term general hospital (02) ==
LOC: ER 12:14
PROVIDERS: Student in an Organized Health Care Education/Training Program
DX: L02.11 Cutaneous abscess of neck (principal); L03.221 Cellulitis of neck; L03.211 Cellulitis of face; M60.9 Myositis, unspecified; J38.4 Edema of larynx; J39.2 Other diseases of pharynx; K02.9 Dental caries, unspecified; F17.210 Nicotine dependence, cigarettes, uncomplicated; Z79.899 Other long term (current) drug therapy; J35.8 Other chronic diseases of tonsils and adenoids
CPT/HCPCS: 31500; 36556; 51702; 70490; 71045; 80053; 82803; 83605; 85025; 87040; 94002; 96365-59; 96375-59; 99291-25; 99292; A9270; C1751; J0295; J1100; J1171; J2060; J2405; J2704; J2919; J3010; J3373; J7030; J7040; Q9967